=== PATIENT | female | born 1935 | race Caucasian/White ===

== ENCOUNTER → 2017-08-21 | Outpatient (CLI) | payer MEDICARE, BC | LOC: COL.RAD 12:50 | DX: M16.12 Unilateral primary osteoarthritis, left hip (principal) | CPT/HCPCS: J3301; Q9967 ==

== ENCOUNTER 2017-11-19 11:40 | Observation (INO) | payer MEDICARE, BC ==
[~2017-11-19] VITALS: Ht 172.7 cm; Wt 82.0 kg
[2017-11-19] VITALS (11 sets, daily range): BP systolic 128–159; BP diastolic 69–82; PULSE 59–95; TEMP 97.7–98.5
[2017-11-19] MEDS ORDERED: VITAMIN FLUSH-F1 CAP PO (11:52)
[2017-11-19] MEDS ORDERED: METROGEL1% TOP (11:52)
[2017-11-19] MEDS ORDERED: ZANTAC 150MG T150 MG PO (11:53)
[2017-11-19] MEDS ORDERED: PLAVIX 75MG TAB75 MG PO (11:53)
[2017-11-19] MEDS ORDERED: CRESTOR 10MG10 MG PO (11:55)
[2017-11-19] MEDS ORDERED: CELEBREX 200MG200 MG PO (11:57)
[2017-11-19] MEDS ORDERED: COZAAR100 MG PO (11:57)
[2017-11-19] MEDS ORDERED: SINGULAIR 110 MG/TAB PO (11:57)
[2017-11-19] MEDS ORDERED: ALLEGRA ALLERG180 MG PO (11:58)
[2017-11-19] MEDS ORDERED: MASON NATURAL1200 MG PO (12:43)
[2017-11-19] MEDS ORDERED: MASON NATURAL2000 IU PO (12:43)
[2017-11-19] MEDS ORDERED: THE MEDICINE S200 M2 PO (12:44)
[2017-11-19] MEDS ORDERED: LOTEMAX 5 ML 5 M5 ML OU (12:45)
[2017-11-20 00:52] VITALS: BP 139/70; PULSE 90; TEMP 98.6
[2017-11-20 04:57] VITALS: BP 156/77; PULSE 72; TEMP 99
[2017-11-20 07:14] VITALS: BP 139/70; PULSE 81; TEMP 98
== END 2017-11-20 10:10 | disposition home or self-care (01) ==
LOC: SURG 11:40
DX: N13.2 Hydronephrosis with renal and ureteral calculous obstruction (principal); N35.9 Urethral stricture, unspecified; Z87.891 Personal history of nicotine dependence; Z79.899 Other long term (current) drug therapy
CPT/HCPCS: C1769; C2617; G0378; G0379; J0690; J1100; J2270; J2405; J2704; J3010; J7030; Q9967

== ENCOUNTER → 2017-11-27 | Outpatient (CLI) | payer MEDICARE, BC ==
[~2017-11-27] MED LIST: ALLEGRA ALLERG180 MG PO; CELEBREX 200MG200 MG PO; COZAAR100 MG PO; CRESTOR 10MG10 MG PO; LOTEMAX 5 ML 5 M5 ML OU; MASON NATURAL1200 MG PO; MASON NATURAL2000 IU PO; METROGEL1% TOP; PLAVIX 75MG TAB75 MG PO; SINGULAIR 110 MG/TAB PO; THE MEDICINE S200 M2 PO; VITAMIN FLUSH-F1 CAP PO; ZANTAC 150MG T150 MG PO
== END ==
LOC: COL.LAB 13:39
DX: Z01.812 Encounter for preprocedural laboratory examination (principal); Z86.14 Personal history of Methicillin resistant Staphylococcus aureus infection

== ENCOUNTER 2018-02-19 08:23 | Day surgery (SDC) | payer MEDICARE, BC ==
[2018-02-19] VITALS (10 sets, daily range): BP systolic 158–196; BP diastolic 72–93; PULSE 59–78; TEMP 97.4
[~2018-02-19] VITALS: Ht 172.8 cm; Wt 78.1 kg
[2018-02-19 09:17] LABS: CALCIUM 9.5 mg/dL (8.4-10.2); CREATININE, serum 0.68 mg/dL (0.52-1.25); POTASSIUM 4.3 mmol/L (3.4-5.0)
[2018-02-19 09:19] LABS: INR 0.9 (0.8-3.0); PROTHROMBIN TIME 10.5 SECONDS (9.7-12.8)
[2018-02-19 09:21] LABS: HEMATOCRIT 41.6 % (37.0-47.0); HEMOGLOBIN 13.8 g/dl (12.5-16.0); MEAN CELL VOLUME 95 fl (80.0-100.0); MEAN CORPUSCULAR HEMOGLOBIN 32 pg (27.0-31.0); MEAN CORPUSCULAR HGB CONC 33 g/dl (33.0-37.0); PLATELET COUNT 216 K/mm3 (130-400); RED BLOOD COUNT 4.37 M/mm3 (4.10-5.30); REDCELL DISTRIBUTION WIDTH-CV 14.1 % (11.5-14.5)
== END 2018-02-19 15:03 | disposition home or self-care (01) ==
LOC: COL.CAR 08:23
PROVIDERS: Internal Medicine Interventional Cardiology
DX: R07.9 Chest pain, unspecified (principal); R94.39 Abnormal result of other cardiovascular function study; I65.23 Occlusion and stenosis of bilateral carotid arteries; Q21.0 Ventricular septal defect; Z79.02 Long term (current) use of antithrombotics/antiplatelets; Z86.73 Personal history of transient ischemic attack (TIA), and cerebral infarction without residual deficits; Z87.891 Personal history of nicotine dependence; Z82.49 Family history of ischemic heart disease and other diseases of the circulatory system; Z82.3 Family history of stroke; Z88.1 Allergy status to other antibiotic agents; Z88.8 Allergy status to other drugs, medicaments and biological substances
CPT/HCPCS: C1769; C1894; J1644; J2250; J3010; Q9967